=== PATIENT | female | born 1945 | race Caucasian/White ===

== ENCOUNTER → 2021-05-01 13:23 | Outpatient (CLI) | payer MEDICARE, SELFPAY ==
--- NOTE | 2021-05-01 | DI.ECHO.S_ITS ---
[facility] +---------+ : : [address] : : : : [id number] : : : : Phone: [phone] +---------+ Echocardiogram Report + + :Name: DICKSON PRAKASH Study Date: 05/01/2021 Height: 63 in : :[facility] ReadingLocation: Weight: 120 lb : : Gender: Female BSA: 1.6 m2 : :: 1945 Age: 75 yrs BP: 162/62 mmHg: :Reason For Study: Murmur : :Ordering Physician: Alida : :Praveen Vaz Performed By: Tito Bucio : :Referring: ALIDA VAZ : + + Interpretation Summary 1) Normal left ventricular size, wall motion, and systolic function (EF 65- 70%). 2) Normal right ventricular size and function. 3) No significant valvular abnormalties. 4) No prior Echo available for comparison. Procedure: A two-dimensional transthoracic echocardiogram with color flow and Doppler was performed. The study quality was technically adequate. There is no prior echocardiogram noted for this patient. The patient was in sinus rhythm with heart rates between 77-82 bpm during the exam. Left Ventricle: The left ventricle is normal in size and wall thickness. The ejection fraction is estimated to be 65-70%. There are no focal wall motion abnormalities. Diastolic function could not be accurately assessed due to unobtainable data. Right Ventricle: The right ventricle is normal in size and function. Atria: Both atria are normal in size. There is no Doppler evidence for an interatrial shunt. Mitral Valve: The mitral valve is normal in structure and function. There is trace mitral regurgitation. Aortic Valve: The aortic valve is normal in structure and function. There is no aortic valve stenosis. No aortic regurgitation is present. Tricuspid Valve: The tricuspid valve is normal in structure and function. There is a trace or physiologic amount of tricuspid regurgitation. Pulmonary artery pressures cannot be estimated because of the lack of a measurable TR jet velocity but the IVC suggests a CVP of around 3 mmHg. Pulmonic Valve: The pulmonic valve is not well seen, but is grossly normal. There is no pulmonic valvular regurgitation. Great Vessels: The aortic root is normal size. The ascending aorta could not be visualized. The IVC is of normal diameter and collapses greater than 50% with a sniff. This suggests a low right atrial pressure of 3 mm Hg. Pericardium/ Pleura There is no pericardial effusion. There is no pleural effusion. MMode/2D Measurements & Calculations LVIDd: 4.7 cm LVOT diam: 1.8 cm LVIDs: 3.1 cm Ao root diam: 2.6 cm FS: 34.0 % IVSd: 0.80 cm LVPWd: 0.90 cm LV mcnulty. diameter/BSA (cm/m^2): 3.0 LV sys. diameter/BSA (cm/m^2): 2.0 LA dimension: 2.5 cm RA long axis: 4.0 cm LA A2 area: 10.0 cm2 IVC diam: 2.0 cm LA A4 area: 12.5 cm2 LA length (vol): 4.1 cm LA vol: 25.6 ml LA vol index: 16.5 ml/m2 LVLs ap4: 5.5 cm LVLd ap2: 6.4 cm TAPSE_phl: 2.2 cm RVIDd/LVIDd_phl: 0.49 Doppler Measurements & Calculations LVOT Max Britton: 126.0 cm/sec MV E max britton: 95.7 cm/sec LV V1 max P.4 mmHg MV A max britton: 118.0 cm/sec LV V1 VTI: 27.8 cm MV E/A: 0.81 Med Peak E' Britton: 7.2 cm/sec E/E' med: 13.2 Lat Peak E' Britton: 7.4 cm/sec E/E' lat: 13.0 E/e' average: 13.1 PA V2 max: 116.0 cm/sec SV(LVOT): 70.7 ml PA V2 mean: 88.6 cm/sec PA mean P.0 mmHg PA pr(Accel): 39.8 mmHg MV P1/2t-pr_phl: 69.0 msec Reading Physician:04:15 PM
== END ==
PROVIDERS: Referring Provider Internal Medicine Cardiovascular Disease; Visit Provider Internal Medicine Cardiovascular Disease
DX: R94.30 Abnormal result of cardiovascular function study, unspecified (principal); R01.1 Cardiac murmur, unspecified
CPT/HCPCS: 93306